=== PATIENT | female | born 1995 | race Two or more races ===

== ENCOUNTER 2020-06-06 13:33 | Outpatient (CLI) | payer OTHER | END 2020-06-06 14:53 | disposition home or self-care (01) | LOC: OFIC 805 13:33 | PROVIDERS: ATTEND Otolaryngology Otology & Neurotology | DX: H60.392 Other infective otitis externa, left ear (principal); H61.22 Impacted cerumen, left ear; H73.22 Unspecified myringitis, left ear ==

== ENCOUNTER 2020-06-21 10:30 | Outpatient (CLI) | payer OTHER | END 2020-06-21 12:51 | disposition home or self-care (01) | LOC: OFIC 805 10:30 | PROVIDERS: ATTEND Otolaryngology Otology & Neurotology | DX: H60.392 Other infective otitis externa, left ear (principal); H61.22 Impacted cerumen, left ear; H73.22 Unspecified myringitis, left ear ==